=== PATIENT | male | born 1990 | race Caucasian/White ===

== ENCOUNTER 2016-09-18 23:35 | Emergency (ER) | payer OTHER ==
[~2016-09-18] VITALS: Ht 185.4 cm; Wt 95.0 kg
[2016-09-19 00:43] VITALS: Ht 185.4 cm; Wt 95.0 kg
[2016-09-19] MEDS ORDERED: ONDANSETRON (ODT) 4 MG TAB ODT STA (02:11)
[2016-09-19] MEDS ORDERED: ULT50 PO (02:16)
[2016-09-19] MEDS ORDERED: HDRP454O TOP (02:16)
--- NOTE | 2016-09-19 02:16 | ERD ---
ER Documentation Chief Complaint Date/Time DATE: 09/19/16 Chief Complaint Left knee pain HPI The patient is a 26-year-old male presenting to the Emergency Department requesting pain control for left knee pain. The patient reports that four weeks ago he underwent left ACL and meniscal repairs. He has been taking Warren for the pain, which provides some, but not total, relief of his pain. The patient has been following up with his orthopedist, Dr. Cecy Soler, who has been prescribing the patient medications to control his pain. He saw Dr. Soler today, and was given a prescription for Warren, but upon arriving at the pharmacy that the prescription was sent to, he was told that the Warren is "out of stock." In the past, he was told by his doctor that if he has increased pain , to present to the ED to obtain medication for pain relief, and therefore he presents today. He denies any redness, warmth, or increased tenderness to the left knee. Denies any numbness, paresthesias or weakness of the distal extremity. Denies recent falls, injury or trauma since the surgery. He rates his current pain as 8/10. Last dose of Warren was this morning. ROS All systems reviewed and are negative except as per history of present illness. Medications Home Meds Active Scripts Ibuprofen* (Motrin*) 600 Mg Tab, 600 MG PO Q6, #30 TAB Prov:BRANDON SIFUENTES PA-C 09/19/16 Tramadol HCl (Tramadol HCl) 50 Mg Tablet, 50 MG PO Q4 Y for PAIN, #20 TAB Prov:BRANDON SIFUENTES PA-C 09/19/16 Hydrophilic Base* (Aquaphor*) 454 Gm-Topical Oint, 1 APPLIC TOP BID, #1 JAR Prov:BRANDON SIFUENTES PA-C 09/19/16 Allergies Allergies: Coded Allergies: No Known Drug Allergy (Verified Allergy, Mild, 12/30/10) PMhx/Soc History of Surgery: No Anesthesia Reaction: No Hx Neurological Disorder: No Hx Respiratory Disorders: No Hx Cardiac Disorders: No Hx Psychiatric Problems: No Hx Miscellaneous Medical Probl: No Hx Alcohol Use: No Hx Substance Use: No Hx Tobacco Use: No Physical Exam Vitals Vital Signs Date Time Temp Pulse Resp B/P Pulse Ox O2 Delivery O2 Flow Rate FiO2 09/19/16 00:43 98.6 101 26 134/89 98 Physical Exam Const: Well-developed, well-nourished, in no acute distress. Head: Atraumatic Eyes: Normal Conjunctiva. ENT: Normal External Ears, Nose and Mouth. Moist mucous membranes. Neck: Supple. Resp: Clear to auscultation bilaterally Cardio: Regular rate and rhythm, no murmurs Skin: No petechiae or rashes Ext: No clubbing or cyanosis. Post-surgical linear vertical scar to lateral left knee, healing, with minimal scabbing. No joint erythema, warmth, tenderness. Patient ambulatory. Passive range of motion of knees intact. No calf swelling/tenderness. Negative Rosanne's test. Neur: Awake and alert Psych: Normal Mood and Affect Results 24 hrs Current Medications Medications (Trade) Dose Ordered Sig/Laura Route PRN Reason Start Time Stop Time Status Last Admin Dose Admin Morphine Sulfate (morphine) 8 mg ONCE ONCE IM 09/19/16 02:30 09/19/16 02:31 DC 09/19/16 02:30 Ondansetron HCl (Zofran Odt) 4 mg ONCE STAT ODT 09/19/16 02:11 09/19/16 02:13 DC 09/19/16 02:30 Procedures/MDM This is a 26-year-old male presenting to the Emergency Department with left knee pain. The patient had meniscal and ACL injury repairs approximately four weeks ago by Dr. Cecy Soler. He has been taking Warren for pain control until today. 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 Patient presents for pain control. He had no significant deformities, effusion. No warmth, erythema, restricted range of motion. No calf swelling/tenderness. He was afebrile, nontoxic. Clinical presentation not consistent with septic joint, DVT, fracture, dislocation, or any other emergent medical condition at this time. The patient was given Morphine, Zofran and Ibuprofen in the ED for pain control. At this time the patient is in stable condition and therefore he can be discharged home with a prescription for Ibuprofen and Tramadol and strict return precautions for signs of deteriorating or worsening condition. The patient is advised to follow up with his primary care provider/edi specialist within 1-2 days for further pain control, reevaluation and further management, or return to the ER sooner for any worsening symptoms. I shared my medical decision making and plan with the patient at length and in great detail, and the patient verbally understands and agrees with the plan for further observation and care as an outpatient. At the time of discharge, all questions were answered. Departure Diagnosis: Primary Impression: Postoperative pain of left knee Condition: Stable Patient Instructions: Knee Pain, Uncertain Cause, Managing Chronic Pain: Activity, Managing Chronic Pain: Medications, R.I.C.E. Additional Instructions: Follow up with your primary medical provider/edi specialist in 1-2 days for reevaluation and further management. Return to the ED sooner for any new or worsening symptoms. BRANDON SIFUENTES PA-C Sep 19, 2016 02:15
[2016-09-19] MEDS ORDERED: IBUP-1542 PO (02:17)
[2016-09-19] MEDS ORDERED: morphine 10 MG INJ IM ONE (02:30)
== END 2016-09-19 03:20 | disposition home or self-care (01) ==
LOC: FTE 23:35
DX: M25.562 Pain in left knee (principal); G89.18 Other acute postprocedural pain
CPT/HCPCS: 96372; J2270; Z7502; Z7610